=== PATIENT | male | born 1955 | race African-American/Black ===

== ENCOUNTER 2021-07-01 14:05 | Inpatient (IN) | payer MEDICARE, MEDICAID ==
[~2021-07-01] VITALS: Ht 170.2 cm; Wt 84.8 kg
[2021-07-01] MEDS ORDERED: MORPHINE SULFATE 4 MG/ML CPJ (NOT FOR IM USE) IV STA (14:11)
[2021-07-01] MEDS ORDERED: FUROSEMIDE 100MG/10ML VIAL IVP SCH (15:45)
[2021-07-01] MEDS ORDERED: FUROSEMIDE 40MG/4ML VIAL IVP SCH (15:45)
[2021-07-01 15:49] LABS: HEMOGLOBIN. 11.2 g/dL (14.0-18.0); MEAN CORPUSCULAR HEMOGLOBIN 27.3 pg (28.0-32.0); MEAN CORPUSCULAR VOLUME 87.7 fL (80.0-94.0); MEAN PLATELET VOLUME 7.5 fl (7.4-10.4); PLATELET 251 x1000/uL (130-400); RED BLOOD CELL COUNT 4.11 mill/uL (4.7-6.1); RED CELL DISTRIBUTION WIDTH 16.7 % (11.6-14.6)
[2021-07-01 15:54] LABS: CHLORIDE 104 mEq/L (98-107)
[2021-07-01 16:04] LABS: CLARITY URINE CLEAR (CLEAR); COLOR URINE YELLOW (YELLOW); KETONES URINE NEGATIVE (NEGATIVE); LEUKOCYTE ESTERASE URINE NEGATIVE (NEGATIVE); NITRITE URINE NEGATIVE (NEGATIVE); OCCULT BLOOD URINE NEGATIVE (NEGATIVE); PROTEIN URINE TRACE (NEGATIVE); SPECIFIC GRAVITY URINE 1.012 (1.005-1.030); UROBILINOGEN URINE 0.2 E.U./dL (0.2-1.0)
[2021-07-01] MEDS ORDERED: ACETAMINOPHEN 325MG TABLET PO ONE (17:15)
[2021-07-01 17:31] LABS: PLATELET ESTIMATE NORMAL
[2021-07-01] MEDS: GUAIFENESIN-DM 200MG-20MG/10ML UDC PO PRN (22:13)
[2021-07-01] MEDS ORDERED: ACETAMINOPHEN 325MG TABLET PO PRN (22:15)
[2021-07-02] MEDS: GUAIFENESIN-DM 200MG-20MG/10ML UDC PO PRN (15:11)
[2021-07-02] MEDS ORDERED: ONDANSETRON HCL 4MG/2ML INJ IV PRN (17:30)
[2021-07-02] MEDS: FUROSEMIDE 40MG/4ML VIAL IVP SCH (17:47)
[2021-07-03 06:10] LABS: HEMATOCRIT. 36.3 % (42.0-52.0); HEMOGLOBIN. 11.9 g/dL (14.0-18.0); MEAN CORPUSCULAR VOLUME 88.6 fL (80.0-94.0); MEAN PLATELET VOLUME 7.6 fl (7.4-10.4); PLATELET 245 x1000/uL (130-400); RED BLOOD CELL COUNT 4.09 mill/uL (4.7-6.1); RED CELL DISTRIBUTION WIDTH 16.4 % (11.6-14.6)
[2021-07-03] MEDS: FUROSEMIDE 40MG/4ML VIAL IVP SCH ×2 (10:39→16:05)
[2021-07-03 11:00] VITALS: BP 115/71
[2021-07-03] MEDS ORDERED: CALC-26 MT (11:42)
[2021-07-03] MEDS ORDERED: LORA10TA7 MT (11:42)
[2021-07-03] MEDS ORDERED: BUME2TAB7 MT (11:42)
[2021-07-03] MEDS ORDERED: HYDR-4134 MT (11:44)
[2021-07-03] MEDS ORDERED: CYAN-33 MT (11:44)
[2021-07-03] MEDS ORDERED: BENZ100C86 MT (11:44)
[2021-07-03] MEDS ORDERED: CARV25TA47 MT (11:48)
[2021-07-03] MEDS ORDERED: ATOR40TA70 MT (11:48)
[2021-07-03] MEDS ORDERED: ISOS10TA2 MT (11:48)
[2021-07-03] MEDS ORDERED: DOCU-150 MT (11:48)
[2021-07-03] MEDS ORDERED: SENN-257 MT (11:48)
[2021-07-03] MEDS ORDERED: PANT40TA51 MT (11:48)
[2021-07-03] MEDS ORDERED: CARV12.545 MT (11:48)
[2021-07-03] MEDS ORDERED: XAR15 MT (11:48)
[2021-07-03] MEDS ORDERED: SPIR25TA6 MT (11:48)
[2021-07-03 12:00] VITALS: BP 105/80
[2021-07-03 13:05] LABS: *BARBITURATES SCREEN URINE NEGATIVE (NEGATIVE)
[2021-07-03 13:06] LABS: *AMPHETAMINES SCREEN URINE NEGATIVE (NEGATIVE); *BENZODIAZEPINES SCREEN URINE NEGATIVE (NEGATIVE); *COCAINE SCREEN URINE NEGATIVE (NEGATIVE); METHADONE URINE SCREEN NEGATIVE (NEGATIVE); OPIATES URINE SCREEN PRESUMTIVE POSITIVE (NEGATIVE)
[2021-07-03 13:07] LABS: CANNABINOID URINE SCREEN NEGATIVE (NEGATIVE); PHENCYCLIDINE URINE SCREEN NEGATIVE (NEGATIVE)
[2021-07-03 14:12] LABS: PLATELET ESTIMATE NORMAL
[2021-07-03 16:00] VITALS: BP 127/75
[2021-07-03] MEDS: GUAIFENESIN-DM 200MG-20MG/10ML UDC PO PRN (17:04)
[2021-07-03] MEDS ORDERED: ENOXAPARIN 30MG/0.3ML SYR SUBCUT SCH (18:00)
[2021-07-03 20:00] VITALS: BP 120/71
[2021-07-04] VITALS: BP 118/70
[2021-07-04 04:00] VITALS: BP 138/79
[2021-07-04 08:00] VITALS: BP 117/83
[2021-07-04] MEDS: FUROSEMIDE 40MG/4ML VIAL IVP SCH ×2 (08:54→17:00)
[2021-07-04 11:37] VITALS: BP 105/77
[2021-07-04 12:00] VITALS: BP 105/77
== END 2021-07-04 17:20 | disposition home or self-care (01) | DRG 291 ==
LOC: ER 14:26 → MICUSO 18:21 → 7EST 07-03 09:48
PROVIDERS: ADMIT Internal Medicine; ATTEND Internal Medicine
DX: I13.0 Hypertensive heart and chronic kidney disease with heart failure and stage 1 through stage 4 chronic kidney disease, or unspecified chronic kidney disease (principal); U07.1 COVID-19; E43 Unspecified severe protein-calorie malnutrition; I50.43 Acute on chronic combined systolic (congestive) and diastolic (congestive) heart failure; J12.82 Pneumonia due to coronavirus disease 2019; N17.9 Acute kidney failure, unspecified; D64.9 Anemia, unspecified; E78.5 Hyperlipidemia, unspecified; N18.9 Chronic kidney disease, unspecified; Z88.0 Allergy status to penicillin; Z79.899 Other long term (current) drug therapy; Z86.73 Personal history of transient ischemic attack (TIA), and cerebral infarction without residual deficits; Z87.891 Personal history of nicotine dependence; Z91.19 Patient's noncompliance with other medical treatment and regimen; Z68.29 Body mass index [BMI] 29.0-29.9, adult
CPT/HCPCS: 36415; 71045; 74176; 80048; 80053; 80305; 81003; 83880; 84484; 85025; 87426; 93005; 99285; J1650; J1940; J2270; J2405